=== PATIENT | female | born 1980 | race Caucasian/White ===

== ENCOUNTER 2017-01-21 17:38 | Emergency (ER) | payer SELFPAY ==
[2017-01-21 17:42] VITALS: BP 129/69; BMI 28.6
[2017-01-21] MEDS ORDERED: TORADOL 60 MG VIAL IM ONE (18:38)
[2017-01-21] MEDS ORDERED: TORADOL TAB PO ONE ×2 (18:40)
--- NOTE | 2017-01-21 19:21 | RAD ---
HISTORY: Right elbow pain. Study: Two view series right elbow joint. Comparison: None Findings: No acute fracture, subluxation, or dislocation is identified. No lytic or bone forming lesions are s een. No osteochondral defects are observed. There is no evidence for significant degenerative arthro sis and or focal joint erosion. No elbow intra-articular loose bodies are seen. No joint effusion is seen. The radial head is unremarkable in its appearance. IMPRESSION: 1. Negative elbow joint exam. Reported By:
--- NOTE | 2017-01-21 19:37 | DR.GENAD ---
HPI - PCP Primary Care Physician: [facility] [place] - HPI Comment HPI Comment: PAIN WORSE TODAY. NO FEVER. NO TRAUMA. - Complaint/Symptoms Chief Complaint Doctors Comments: PAIN RIGHT ELBOW RADIATING TO THE WRIST. SEVERAL WEEKS Chief Complaint:: PATIENT C/O RIGHT ARM PAIN THAT STARTED A COUPLE OF MONTHS AGO. NOW IT IS SHOTING PAIN DOWN TO THE WRIST. - Nurses notes reviewed Nurses Notes Review: Yes - Source History Provided: Patient - Mode of Arrival Mode of Arrival: Ambulatory - Timing Onset of Chief Complaint: 01/07/17 Came on: Suddenly - Duration Duration: Constant Duration: Days PMH - PMH Past Medical History: No Past Surgical History: Yes Surgical History: [employer] Surgery, Ortho Surgery, Other Past Surgical History Comment: MOUTH - Family History History of Family Medical Conditions: Yes Family Medical History: Diabetes Mellitus, Coronary Artery Disease - Social History Does patient currently use any type of tobacco product: Yes Have you used tobacco products in the last 12 months: Yes Type of Tobacco Use: Cigarettes Does any household member use tobacco: No Alcohol Use: Occasionally Do you use any recreational Drugs:: No Lives With: Family Lives Where: Home - infectious screening In the last 2 months have you had wt loss of >10#?: NO Have you had fever, night sweats or hemotysis?: No Have you traveled outside the country in the last 6 months?: No Isolation: Standard ROS - Review of Systems Constitutional: No Symptoms Reported Eyes: No Symptoms Reported ENTM: No Symptoms Reported Respiratoy: No Symptoms Reported Cardiovascular: No Symptoms Reported Gastrointestinal/Abdominal: No Symptoms Reported Genitourinary: No Symptoms Reported Neurological: No Symptoms Reported Musculoskeletal: Right, Elbow Integumentary: No Symptoms Reported Hematologic/Lymphatic: No Symptoms Reported Endocrine: No Symptoms Reported All Other Systems: Reviewed and Negative PE - Vital Signs Vitals: Temperature 97.3 F Pulse Rate 80 Respiratory Rate 20 Blood Pressure 129/69 O2 Sat by Pulse Oximetry 99 - General Limitations: No Limitations General Appearance: Alert - Head Head Exam: Normal Inspection - Eyes Eye exam: Normal Appearance - ENT ENT Exam: Normal External Ear Exam External Ear Exam: Normal External Inspection Mouth Exam: Normal Inspection Throat Exam: Normal Inspection - Neck Neck Exam: Trachea Midline - Respiratory Respiratory Exam: Bilateral Clear to Auscultation - Cardiovascular Cardiovascular Exam: Regular Rate, Normal Rhythm, Normal Heart Sounds - Abdominal Exam Abdominal Exam: Normal Inspection - Extremities Extremities Exam: Tenderness (RT ELBOW), Joint Swelling (RT ELBOW). negative: Full ROM (DECREASE ROM.) - Back Back Exam: Normal Inspection - Neurologic Neurological Exam: Alert - Psychiatric Psychiatric Exam: Normal Affect, Normal Mood - Skin Skin Exam: Normal Color MDM - Additional Information Additional Information Obtained From: Family - Differential Diagnosis Differential Diagnosis: ELBOW CONTUSION, SPRAIN, FRATURE. Course - Treatment Treatment: SEE ORDERS. - Education/Counseling Education/Counseling: Patient, Family, Education Educated On: Diagnosis, Needs for Follow Up ROR - XRAY XRAY Findings: REPORT DISCUSS WITH PATIENT. - Diagnosis Discharge Problem: Sprain of right elbow Qualifiers: Encounter type: initial encounter Qualified Code(s): S53.401A - Unspecified sprain of right elbow, initial encounter Bursitis of right elbow Qualifiers: Elbow bursitis location: olecranon bursitis Qualified Code(s): M70.21 - Olecranon bursitis, right elbow Contusion of right elbow Qualifiers: Encounter type: initial encounter Qualified Code(s): S50.01XA - Contusion of right elbow, initial encounter - Discharge Plan Disposition: HOME, SELF-CARE Condition: Stable Prescriptions: Acetaminophen/Codeine Tab [TYLENOL w/CODEINE #3 (300 MG/30 MG) *] 1 tab PO Q4- 6H PRN #12 tab PRN Reason: Pain Ibuprofen [MOTRIN TAB 600 MG *] 600 mg PO TID PRN #20 tab PRN Reason: Pain/Inflammation - Follow ups/Referrals Follow ups/Referrals: NFD,None [Primary Care Provider] - 3 days - Instructions Instructions: Elbow Contusion, [id number], Elbow Bursitis, [id number] Additional Instructions: RETURN TO ED IF WORSE.
== END 2017-01-21 19:47 | disposition home or self-care (01) ==
LOC: ER 17:55
DX: S53.401A Unspecified sprain of right elbow, initial encounter (principal); S50.01XA Contusion of right elbow, initial encounter; M70.21 Olecranon bursitis, right elbow; Y33.XXXA Other specified events, undetermined intent, initial encounter; Y92.9 Unspecified place or not applicable
CPT/HCPCS: 73070; 99282; 99283

== ENCOUNTER 2017-03-25 21:40 | Emergency (ER) | payer SELFPAY ==
[2017-03-25 21:45] VITALS: BMI 30.7
--- NOTE | 2017-03-26 00:30 | DR.GENAD ---
HPI - PCP Primary Care Physician: nfd - Complaint/Symptoms Chief Complaint:: pt states" thursday i turned the wrong way and i got a pain under my lt breast and then again today i did it again and it hurts bad when i move" - Source History Provided: Patient - Mode of Arrival Mode of Arrival: Ambulatory - Timing Onset of Chief Complaint: 03/20/17 PMH - PMH Past Medical History: No Past Surgical History: Yes Surgical History: Joint Replacement Past Surgical History Comment: lt knee - Family History History of Family Medical Conditions: Yes Family Medical History: Diabetes Mellitus, Cancer, Coronary Artery Disease, Hypertension - Social History Type of Tobacco Use: Cigarettes Alcohol Use: Occasionally Do you use any recreational Drugs:: No Lives With: Family Lives Where: Home - infectious screening In the last 2 months have you had wt loss of >10#?: NO Have you had fever, night sweats or hemotysis?: No Have you traveled outside the country in the last 6 months?: No Isolation: Standard ROS - Review of Systems Eyes: No Symptoms Reported ENTM: No Symptoms Reported Respiratoy: No Symptoms Reported Cardiovascular: No Symptoms Reported Gastrointestinal/Abdominal: No Symptoms Reported Genitourinary: No Symptoms Reported Neurological: No Symptoms Reported Musculoskeletal: Rib(s) Integumentary: No Symptoms Reported Hematologic/Lymphatic: No Symptoms Reported Endocrine: No Symptoms Reported Psychiatric: No Symptoms Reported All Other Systems: Reviewed and Negative PE - Vital Signs Vitals: Temperature 97.9 F Pulse Rate 90 Respiratory Rate 18 Blood Pressure 128/69 O2 Sat by Pulse Oximetry 100 - General Limitations: No Limitations General Appearance: Alert, In No Apparent Distress - Head Head Exam: Normal Inspection, Atraumatic - Eyes Eye exam: Normal Appearance, PERRL, EOMI - ENT ENT Exam: Normal Exam External Ear Exam: Normal External Inspection TM/Canal Exam: Bilateral Normal Nose Exam: Normal Nose Exam Mouth Exam: Normal Inspection Throat Exam: Normal Inspection - Neck Neck Exam: Normal Inspection, Full ROM - Chest Chest Inspection: Normal Inspection - Respiratory Respiratory Exam: Normal Lung Sounds Bilat Respiratory Exam: Bilateral Clear to Auscultation - Cardiovascular Cardiovascular Exam: Regular Rate, Normal Rhythm - Abdominal Exam Abdominal Exam: Normal Inspection Abdominal Tenderness: negative: RUQ, RLQ, LUQ, LLQ, Epigastrium, Suprapubic, Diffuse, Mild, Moderate, Severe, Other - Extremities Extremities Exam: Normal Inspection, Full ROM - Back Back Exam: Normal Inspection - Neurologic Neurological Exam: Alert, Oriented X3, CN II-XII Intact - Psychiatric Psychiatric Exam: Normal Affect, Normal Mood - Skin Skin Exam: Warm, Dry, Intact Course - Reevaluation 1st: Improved ROR - XRAY XRAY Interpreted by: Radiologist (Chest: No displaced) - Diagnosis Discharge Problem: Chest wall contusion Qualifiers: Encounter type: initial encounter Laterality: left Qualified Code(s): S20.212A - Contusion of left front wall of thorax, initial encounter - Discharge Plan Condition: Stable - Follow ups/Referrals Follow ups/Referrals: NFD,None [Primary Care Provider] - 3 days - Instructions
[2017-03-26] MEDS ORDERED: DEMEROL INJ IM ONE (00:33)
[2017-03-26] MEDS ORDERED: DEMEROL INJ ONE (00:34)
[2017-03-26] MEDS ORDERED: MOTRIN TAB 800 MG PO ONE ×2 (00:39)
--- NOTE | 2017-03-26 00:55 | RAD ---
Four views of the left ribs Indication: Rib pain after injury. Findings: No displaced left-sided rib fracture. The no pneumothorax or hemothorax. Lungs are clear. Heart size is normal. Impression: No displaced left-sided rib fracture or acute cardiopulmonary abnormality. Reported By:
[2017-03-26 01:24] VITALS: BP 123/59
== END 2017-03-26 01:23 | disposition home or self-care (01) ==
LOC: ER 21:49
DX: S20.212A Contusion of left front wall of thorax, initial encounter (principal); Y33.XXXA Other specified events, undetermined intent, initial encounter; Y92.9 Unspecified place or not applicable
CPT/HCPCS: 71111; 99282; J2175